=== PATIENT | male | born 1955 | race Caucasian/White ===

== ENCOUNTER 2016-10-25 09:48 | Emergency (ER) | payer OTHER ==
[~2016-10-25] VITALS: Ht 162.6 cm; Wt 65.0 kg
[~2016-10-25 09:48] MED LIST: NIFE20CA PO; PROT40TA PO; TRAM50 PO
[2016-10-25 09:49] VITALS: BP 130/87; PULSE 99; RESP 14; TEMP 98.7; O2SAT 99
--- NOTE | 2016-10-25 10:57 | PD ---
HPI . 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 Patient states he was started on Meloxicam last Monday and shortly after (3-4 days) developed bright red blood from the rectum. Patient states he has had this happen in the past with most recent episode in March 2015. He says it was much worse then. Nonetheless, he has already stopped the Meloxicam. He says he is still having some bleeding, but very light. He denies any other symptoms. He denies abdominal pain, diarrhea, nausea, vomiting or constipation. He denies any chest pain, SOB or diaphoresis. He was prompted to come to the ED by his PCP for further testing. At the time of examination, patient is hemodynamically stable in no distress. 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 ) Cancer: No Diminished Hearing: No Endocrine: No Genitourinary: No Hypertension: Yes Immune Disorder: Yes Reproductive: No Ulcer: Yes Past Surgical History Abdominal Surgery: Yes (removal of part of sigmoid colon post fistula development) Social History Alcohol Use: Yes (2 beers daily) Tobacco Use: Yes (4 to 5 cig per day) Substance Use: No Allergies-Medications (Allergen,Severity, Reaction): Coded Allergies: No Known Allergies (Unverified , 03/27/15) Reported Meds & Prescriptions Reported Meds & Active Scripts Active Protonix (Pantoprazole Sodium) 40 Mg Tab 40 Mg PO BID 60 Days Ultram (Tramadol HCl) 50 Mg Tab 50 Mg PO Q8H PRN Reported Nifedipine 20 Mg Cap 30 Mg PO DAILY Review of Systems General / Constitutional: No: Fever Eyes: No: Visual changes HENT: No: Headaches Cardiovascular: No: Chest Pain or Discomfort Respiratory: No: Shortness of Breath Gastrointestinal: Positive: Other (bright red blood per rectum), No: Abdominal Pain Genitourinary: No: Dysuria Musculoskeletal: No: Pain Skin: No Rash Neurologic: No: Weakness Psychiatric: No: Depression Endocrine: No: Polydipsia Hematologic/Lymphatic: No: Easy Bruising Physical Exam Narrative GENERAL: AAOX 3, NAD, comfortable on exam table, HEAD:normocephalic, atraumatic, EARS: normal pinna, no deformities EYES: no icterus, pink conjunctiva MOUTH: moist mucous membranes NECK: supple, no adenopathy RESP: CTAB, no audible rales, rhonchi, or wheezing CARD:s1 and s2, RRR, no rubs, murmur, or gallop ABD: soft, NT, ND, normoactive bowel sounds RECTAL: + external hemorrhoid without signs of thrombosis or bleeding, Guaiac + stool BACK: no spinal deformities NEURO: grossly intact, no focal deficits PSYCH: AAOX3, normal affect, coherent speech Data Data Last Documented VS Vital Signs Date Time Temp Pulse Resp B/P Pulse Ox O2 Delivery O2 Flow Rate FiO2 10/25/16 09:49 98.7 99 14 130/87 99 Room Air Orders Complete Blood Count With Diff (10/25/16 10:58) Comprehensive Metabolic Panel (10/25/16 10:58) Prothrombin Time / Inr (Pt) (10/25/16 10:58) Act Partial Throm Time (Ptt) (10/25/16 10:58) Urinalysis - C+S If Indicated (10/25/16 10:58) Type And Screen (10/25/16 11:08) Labs Laboratory Tests Test 10/25/16 11:20 White Blood Count 8.7 TH/MM3 Red Blood Count 4.17 MIL/MM3 Hemoglobin 12.9 GM/DL Hematocrit 37.9 % Mean Corpuscular Volume 91.0 FL Mean Corpuscular Hemoglobin 30.9 PG Mean Corpuscular Hemoglobin 34.0 % Concent Red Cell Distribution Width 14.5 % Platelet Count 352 TH/MM3 Mean Platelet Volume 6.6 FL Neutrophils (%) (Auto) 67.4 % Lymphocytes (%) (Auto) 22.1 % Monocytes (%) (Auto) 9.8 % Eosinophils (%) (Auto) 0.4 % Basophils (%) (Auto) 0.3 % Neutrophils # (Auto) 5.9 TH/MM3 Lymphocytes # (Auto) 1.9 TH/MM3 Monocytes # (Auto) 0.9 TH/MM3 Eosinophils # (Auto) 0.0 TH/MM3 Basophils # (Auto) 0.0 TH/MM3 CBC Comment DIFF FINAL Differential Comment Prothrombin Time 10.0 SEC Prothromb Time International 0.9 RATIO Ratio Activated Partial 30.4 SEC Thromboplast Time Urine Color YELLOW Urine Turbidity HAZY Urine pH 7.5 Urine Specific [place] 1.017 Urine Protein NEG mg/dL Urine Glucose (UA) NEG mg/dL Urine Ketones NEG mg/dL Urine Occult Blood NEG Urine Nitrite NEG Urine Bilirubin NEG Urine Urobilinogen LESS THAN 2.0 MG/DL Urine Leukocyte Esterase NEG Urine Amorphous Sediment RARE Urine Hyaline Casts 1 /lpf Urine Mucus FEW /lpf Microscopic Urinalysis Comment CULT NOT INDICATED Sodium Level 138 MEQ/L Potassium Level 4.5 MEQ/L Chloride Level 107 MEQ/L Carbon Dioxide Level 24.2 MEQ/L Anion Gap 7 MEQ/L Blood Urea Nitrogen 17 MG/DL Creatinine 0.74 MG/DL Estimat Glomerular Filtration 108 ML/MIN Rate Random Glucose 91 MG/DL Calcium Level 9.5 MG/DL Total Bilirubin 0.4 MG/DL Aspartate Amino Transf 17 U/L (AST/SGOT) Alanine Aminotransferase 26 U/L (ALT/SGPT) Alkaline Phosphatase 99 U/L Total Protein 7.7 GM/DL Albumin 4.0 GM/DL [facility] Medical Decision Making Medical Screen Exam Complete: Yes Emergency Medical Condition: Yes Differential Diagnosis GI bleeding: possible ulcer, diverticulosis, colon cancer, hemorrhoidal bleeding Narrative Course 60 yr old male with RA, HTN, GERD, 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 Patient states he was started on Meloxicam last Monday and shortly after (3-4 days) developed bright red blood from the rectum. Patient states he has had this happen in the past with most recent episode in March 2015. He says it was much worse then. Nonetheless, he has already stopped the Meloxicam. He says he is still having some bleeding, but very light. He denies any other symptoms. He denies abdominal pain, diarrhea, nausea, vomiting or constipation. He denies any chest pain, SOB or diaphoresis. He was prompted to come to the ED by his PCP for further testing. At the time of examination, patient is hemodynamically stable in no distress. Patient seen and examined. Case discussed with Dr. Aquino. Labs are unremarkable except for mildly decreased H/H. NO need for admission or further workup in ED. Discussed with patient and his . Recommend outpatient f/u with PCP and GI. Also recommend seeing Rheumatology for change of medications. Discussed no more NSAIDs. Patient thanked me for his care. Diagnosis Primary Impression: Bright red blood per rectum Additional Impression: History of GI bleed Patient Instructions: Gastrointestinal Bleeding (DC), General Instructions Additional Instructions: Please refrain from taking medications known as NSAIDS, these include ibuprofen and aleve. 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 Return to ED if your symptoms return or worsen. Med/Other Pt SpecificInfo: Prescription(s) given Scripts Pantoprazole (Protonix)20 Mg Tab20 Mg PO DAILY #30 TAB Ref 0 Prov:Katey Owen 10/25/16 Disposition: 01 DISCHARGE HOME Condition: Stable Katey Owen Oct 25, 2016 10:57
[2016-10-25 11:36] LABS: AUTOMATED NEUTROPHIL # 5.9 TH/MM3 (1.8-7.7); BASOPHIL % 0.3 % (0.0-2.0); EOSINOPHIL % 0.4 % (0.0-4.0); HEMATOCRIT 37.9 % (39.0-51.0); HEMO FLAGS DIFF FINAL; LYMPH % 22.1 % (9.0-44.0); LYMPHOCYTE # 1.9 TH/MM3 (1.0-4.8); MEAN CORPUSCULAR HEMOGLOBIN 30.9 PG (27.0-34.0); MONO % 9.8 % (0.0-8.0); NEUT % 67.4 % (16.0-70.0); PLATELET COUNT 352 TH/MM3 (150-450); RED BLOOD COUNT 4.17 MIL/MM3 (4.50-5.90); RED CELL DISTRIBUTION WIDTH 14.5 % (11.6-17.2); WHITE BLOOD COUNT 8.7 TH/MM3 (4.0-11.0)
[2016-10-25 11:37] LABS: BLOOD, URINE NEG (NEG); COMMENT (UR) CULT NOT INDICATED; CULTURE IF INDICATED CULT NOT INDICATED; GLUCOSE,URINE NEG (NEG); HYALINE CAST, URINE 1 /lpf (RARE); KETONE, URINE NEG (NEG); MUCUS URINE FEW /lpf (OCC); NITRITE,URINE NEG (NEG); PH, URINE 7.5 (5.0-8.5); URINE COLOR YELLOW (YELLW/STRAW)
[2016-10-25 11:44] LABS: APTT (PATIENT) 30.4 SEC (24.3-30.1); INTERNATIONAL NORMALIZED RATIO 0.9 RATIO
[2016-10-25 11:50] LABS: ALT (GPT) 26 U/L (12-78); ANION GAP 7 MEQ/L (5-15); AST (GOT) 17 U/L (15-37); BICARBONATE 24.2 MEQ/L (21.0-32.0); BLOOD UREA NITROGEN 17 MG/DL (7-18); CHLORIDE 107 MEQ/L (98-107); GLOMERULAR FILTRATION RATE 108 ML/MIN (>89); POTASSIUM 4.5 MEQ/L (3.5-5.1); SODIUM (NA) 138 MEQ/L (136-145)
[2016-10-25 11:52] LABS: ALKALINE PHOSPHATASE 99 U/L (45-117); TOTAL BILIRUBIN ADULT 0.4 MG/DL (0.2-1.0)
--- NOTE | 2016-10-25 12:02 | PD ---
Data Data Last Documented VS Vital Signs Date Time Temp Pulse Resp B/P Pulse Ox O2 Delivery O2 Flow Rate FiO2 10/25/16 09:49 98.7 99 14 130/87 99 Room Air Orders Complete Blood Count With Diff (10/25/16 10:58) Comprehensive Metabolic Panel (10/25/16 10:58) Prothrombin Time / Inr (Pt) (10/25/16 10:58) Act Partial Throm Time (Ptt) (10/25/16 10:58) Urinalysis - C+S If Indicated (10/25/16 10:58) Type And Screen (10/25/16 11:08) Labs Laboratory Tests Test 10/25/16 11:20 White Blood Count 8.7 TH/MM3 Red Blood Count 4.17 MIL/MM3 Hemoglobin 12.9 GM/DL Hematocrit 37.9 % Mean Corpuscular Volume 91.0 FL Mean Corpuscular Hemoglobin 30.9 PG Mean Corpuscular Hemoglobin 34.0 % Concent Red Cell Distribution Width 14.5 % Platelet Count 352 TH/MM3 Mean Platelet Volume 6.6 FL Neutrophils (%) (Auto) 67.4 % Lymphocytes (%) (Auto) 22.1 % Monocytes (%) (Auto) 9.8 % Eosinophils (%) (Auto) 0.4 % Basophils (%) (Auto) 0.3 % Neutrophils # (Auto) 5.9 TH/MM3 Lymphocytes # (Auto) 1.9 TH/MM3 Monocytes # (Auto) 0.9 TH/MM3 Eosinophils # (Auto) 0.0 TH/MM3 Basophils # (Auto) 0.0 TH/MM3 CBC Comment DIFF FINAL Differential Comment Prothrombin Time 10.0 SEC Prothromb Time International 0.9 RATIO Ratio Activated Partial 30.4 SEC Thromboplast Time Urine Color YELLOW Urine Turbidity HAZY Urine pH 7.5 Urine Specific [place] 1.017 Urine Protein NEG mg/dL Urine Glucose (UA) NEG mg/dL Urine Ketones NEG mg/dL Urine Occult Blood NEG Urine Nitrite NEG Urine Bilirubin NEG Urine Urobilinogen LESS THAN 2.0 MG/DL Urine Leukocyte Esterase NEG Urine Amorphous Sediment RARE Urine Hyaline Casts 1 /lpf Urine Mucus FEW /lpf Microscopic Urinalysis Comment CULT NOT INDICATED Sodium Level 138 MEQ/L Potassium Level 4.5 MEQ/L Chloride Level 107 MEQ/L Carbon Dioxide Level 24.2 MEQ/L Anion Gap 7 MEQ/L Blood Urea Nitrogen 17 MG/DL Creatinine 0.74 MG/DL Estimat Glomerular Filtration 108 ML/MIN Rate Random Glucose 91 MG/DL Calcium Level 9.5 MG/DL Total Bilirubin 0.4 MG/DL Aspartate Amino Transf 17 U/L (AST/SGOT) Alanine Aminotransferase 26 U/L (ALT/SGPT) Alkaline Phosphatase 99 U/L Total Protein 7.7 GM/DL Albumin 4.0 GM/DL [facility] Supervised Visit with TOMAS: Yes Narrative Course I, Dr. Torres, have reviewed the advance practice practioner's documentation and am in agreement, met with the patient face to face, made the diagnosis, and the medical decision making was done by me. *My assessment and Findings: 60-year-old male with history of rheumatoid arthritis and previous GI bleed here with complaint of bright red blood per rectum since starting meloxicam. He has since stopped the meloxicam himself, last dose 48 hours ago. He is still having some very light bright red blood per rectum. No history of hemorrhoids but he does have a history of diverticulitis status post bowel resection. History of previous GI bleeding with Celebrex and indomethacin. His exam is benign without any reproducible tenderness to palpation. Rectal exam per PA Hemoccult-positive. Patient is well-appearing without symptoms of symptomatic anemia or severe anemia, but with his history, will require and laboratory testing to evaluate for this. No history of coagulopathy that this is on the differential. Patient's laboratory workup was unremarkable with hemoglobin approximately 12. He is well-appearing and is 30 discontinue meloxicam on his own accord. 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 The ER for the warning signs discussed. Follow-up with GI physician of GI bleeding continues for colonoscopy. Soco Torres MD Oct 25, 2016 12:02
[2016-10-25] MEDS ORDERED: PANT20 PO (12:06)
== END 2016-10-25 12:23 | disposition home or self-care (01) ==
LOC: NETRI 09:48
DX: K62.5 Hemorrhage of anus and rectum (principal); K21.9 Gastro-esophageal reflux disease without esophagitis; I10 Essential (primary) hypertension; M06.9 Rheumatoid arthritis, unspecified; F17.210 Nicotine dependence, cigarettes, uncomplicated
CPT/HCPCS: 80053; 81001; 85025; 85610; 85730; 86850; 86900; 86901; 99283